=== PATIENT | male | born 1975 | race African-American/Black ===

== ENCOUNTER 2019-12-12 05:18 | Emergency (ER) | payer MEDICAID ==
[~2019-12-12] VITALS: Ht 185.4 cm; Wt 90.9 kg
[2019-12-12] MEDS ORDERED: ASPIRIN 81 MG TABLET CHEW ONE (05:45)
--- NOTE | 2019-12-12 05:50 | NUR ---
Pt comes in by POV with complaints of chest pain that last about 25 mins or so. Patient is from out of town and states he has a history of [place]. Hx of 5 stents and his last one was about a month ago. Patient stated that the pain came on sudden and "very intense" Subsided when he was driving to the hospital. Patient noted to be anxious. IV established, labs drawn, placed on the surveillance system monitor and continous O2 monitor. Call valladares within reach, VSS. Will con't to monitor patient.
[2019-12-12 05:51] LABS: BASOPHILS % (AUTO) 1 % (0-1); EOSINOPHILS % (AUTO) 2 % (1-7); LYMPHOCYTES % (AUTO) 30 % (22-44); MEAN CORPUSCULAR HEMOGLOBIN 27.8 pg (27.5-34.5); MEAN CORPUSCULAR HGB CONC 32.6 g/dL (33.2-36.2); MONOCYTES % (AUTO) 7 % (2-9); NEUTROPHILS % (AUTO) 61 % (42-75); PLATELET COUNT 341 x10^3/uL (130-400); RED CELL DISTRIBUTION WIDTH 16.4 % (9.4-14.8)
[2019-12-12 05:58] LABS: MD NO
[2019-12-12] MEDS ORDERED: ASPIRIN 81 MG TABLET CHEW PO ONE (06:00)
[2019-12-12] MEDS ORDERED: SODIUM CHLORIDE FLUSH 10ML SYR IVF ONE (06:00)
[2019-12-12 06:03] LABS: ALBUMIN 3.4 g/dL (3.4-5.0); ANION GAP 6 mmol/L (5-15); CALCIUM 9.1 mg/dL (8.5-10.1); CHLORIDE 109 mmol/L (98-107); CREATININE 1.07 mg/dL (0.7-1.3)
[2019-12-12 06:06] LABS: TROPONIN I < 0.015 ng/mL (0.000-0.045)
[2019-12-12] MEDS ORDERED: LISI-170 PO (06:46)
[2019-12-12] MEDS ORDERED: TICA90TA PO (06:46)
[2019-12-12] MEDS ORDERED: CARV3.1212 PO (06:46)
[2019-12-12] MEDS ORDERED: ATOR-2 PO (06:46)
--- NOTE | 2019-12-12 06:51 | NUR ---
REPORT RECIEVED FROM DAVION MESSER
[2019-12-12 07:55] VITALS: BP 124/87
--- NOTE | 2019-12-12 08:26 | NUR ---
PT LEFT GABRIEL WHALEN UPDATED, PER MD HE WILL NOTIFY HOSPITALIST.
== END 2019-12-12 08:25 | disposition left against medical advice (07) ==
LOC: ED 05:51 → UNDOADMIN 06:41 → EDIP 06:41 → ED 08:25
DX: R07.2 Precordial pain (principal); I20.0 Unstable angina; R00.0 Tachycardia, unspecified; F17.200 Nicotine dependence, unspecified, uncomplicated
CPT/HCPCS: 36415; 71045; 80048; 82040; 84484; 85025; 93005; 99285